=== PATIENT | male | born 1985 | race American Indian/Alaskan Native ===

== ENCOUNTER 2017-12-13 22:45 | Emergency (ER) | payer BC ==
[2017-12-14 01:37] VITALS: BP 122/80
[2017-12-14 02:04] LABS: Bilirubin,Urine NEG (Negative); Blood,Urine NEG (Negative); Color,Urine Yellow (Yellow); Mucus,Urine 1+ /HPF; Nitrite,Urine NEG (Negative); Protein,Urine <15 mg/dL mg/dL (Negative); WBC,Urine < 1.0 /HPF (0.0-6.0)
--- NOTE | 2017-12-14 08:01 | Emergency Department Report ---
ED Male HPI - General Chief complaint: Urogenital-Male Stated complaint: BLOOD IN URINE Time Seen by Provider: 12/14/17 07:52 Source: patient Mode of arrival: Ambulatory Limitations: No Limitations - History of Present Illness Initial comments: 32-year-old -[place] male past medical history of HIV positive. Patient reports he has blood in his urine for 4 days after having intercourse. Patient denies any penile discharge. Patient reports that he had this going on for 2 years prior. He denies any fever or chills or nausea or vomiting. Patient reports that he is followed by Rahel Quintana for his HIV management. Complaint: other (hematuria) - Related Data Home Medications Medication Instructions Recorded Confirmed Last Taken No Known Home Medications [No 12/14/17 12/14/17 Unknown Reported Home Medications] Allergies Allergy/AdvReac Type Severity Reaction Status Date / Time No Known Allergies Allergy Unverified 12/14/17 01:37 ED Review of Systems ROS: Stated complaint: BLOOD IN URINE Other details as noted in HPI Comment: All other systems reviewed and negative Genitourinary: hematuria (after intercourse) ED Past Medical Hx - Past Medical History Previous Medical History?: No Hx HIV: Yes - Surgical History Past Surgical History?: No - Social History Smoking Status: Current Every Day Smoker Substance Use Type: None, Marijuana - Medications Home Medications: Home Medications Medication Instructions Recorded Confirmed Last Taken Type No Known Home Medications [No 12/14/17 12/14/17 Unknown History Reported Home Medications] ED Physical Exam - General Limitations: No Limitations General appearance: alert, in no apparent distress - Head Head exam: Present: atraumatic, normocephalic - Eye Eye exam: Present: normal appearance - GI/Abdominal GI/Abdominal exam: Present: soft, normal bowel sounds - Psychiatric Psychiatric exam: Present: normal affect, normal mood - Skin Skin exam: Present: warm, dry, intact, normal color. Absent: rash ED Course Vital Signs 12/14/17 01:28 Temperature 98.2 F Pulse Rate 72 Respiratory 16 Rate Blood Pressure 122/80 O2 Sat by Pulse 100 Oximetry ED Medical Decision Making - Medical Decision Making Patient's been evaluated by this provider fast track. Review of urinalysis indicates there is no blood in the urine does know elevated WBCs. I discussed the patient that we will have sent GC and chlamydia. I offered patient to be treated with Rocephin 250 mg and azithromycin 1 g. Patient did tell to me that he was checked 2 days ago but has not got his results from his prior STD check. I also discussed the patient that we will need to refer him to urologist for them to evaluate why he is having blood after intercourse. Patient verbalized understanding Critical care attestation.: If time is entered above; I have spent that time in minutes in the direct care of this critically ill patient, excluding procedure time. ED Disposition Clinical Impression: Hematuria Qualifiers: Hematuria type: unspecified type Qualified Code(s): R31.9 - Hematuria, unspecified Disposition: - TO HOME OR SELFCARE Is pt being admited?: No Does the pt Need Aspirin: No Condition: Stable Instructions: Acute Hematuria (ED) Referrals: CAIT RUSHING MD [Primary Care Provider] - 3-5 Days DIVYA KEY MD [Staff Physician] - 3-5 Days KRYSTEN SOARES MD [Staff Physician] - 3-5 Days
[2017-12-14] MEDS ORDERED: ROCEPHIN IM ONE (08:04)
[2017-12-14] MEDS ORDERED: ZITHROMAX PO ONE (08:04)
[2017-12-14] MEDS ORDERED: XYLOCAINE 1% MPF 5 mL INFILTRATI ONE (08:04)
== END 2017-12-14 08:49 | disposition home or self-care (01) ==
LOC: ED 22:45
DX: R31.9 Hematuria, unspecified (principal); F17.200 Nicotine dependence, unspecified, uncomplicated; F12.10 Cannabis abuse, uncomplicated
CPT/HCPCS: 81001; 87591; 96372; 99283; J0696